=== PATIENT | male | born 1990 | race Caucasian/White ===

== ENCOUNTER 2017-11-14 12:02 | Inpatient (IN) | payer SELFPAY ==
[~2017-11-14] VITALS: Ht 177.8 cm; Wt 68.3 kg
[2017-11-14] MEDS ORDERED: ASPirin 81 mg TAB PO ONE (12:15)
[2017-11-14] MEDS ORDERED: CARISOPRODOL 350 MG TAB PO ONE (12:30)
[2017-11-14 13:47] LABS: Basophils # (auto) 0 uL; Basophils % (auto) 0.4 % (0.0-2.0); Eosinophils # (auto) 0 uL; Eosinophils % (auto) 0.4 % (0.0-7.0); Hematocrit 43.1 % (41.0-53.0); Hemoglobin 14.4 g/dL (13.5-17.5); Lymphocytes % (auto) 22.5 % (10.0-50.0); Mean Corpuscular Hemoglobin 30.3 pg (28.0-32.0); Mean Corpuscular Hgb Conc. 33.5 g/dL (32.0-36.0); Mean Corpuscular Volume 90.6 fL (80.0-100.0); Monocytes # (auto) 0.5 uL; Monocytes % (auto) 5.2 % (0.0-12.0); Neutrophils # (auto) 6.5 uL; Neutrophils % (auto) 71.5 % (37.0-80.0); Platelet Count (auto) 171 10^3/uL (140-450); Red Blood Cells 4.76 10^6/uL (4.5-5.90); Red Cell Distribution Width 13.2 % (11.8-14.3); White Blood Cell 9.1 10^3/uL (4.4-10.8)
[2017-11-14] MEDS ORDERED: PROMETHAZINE HCL 25 MG/ML 1ML ONE (14:01)
[2017-11-14] MEDS ORDERED: KETOROLAC TROMETH 30 MG/ML 1ML VIAL ONE (14:01)
[2017-11-14 14:03] LABS: Alanine Aminotransferase 30 U/L (16-61); Albumin 4.2 g/dL (3.4-5.0); Alkaline Phosphatase 83 U/L (45-117); Anion Gap 5 (5-15); Aspartate Aminotransferase 19 U/L (15-37); BUN/Creatinine Ratio 10.5; Bilirubin, Total 0.3 mg/dL (0.2-1.0); Blood Urea Nitrogen 9 mg/dL (7-18); Calcium 9.1 mg/dL (8.5-10.1); Carbon Dioxide 29 mmol/L (21-32); Chloride 107 mmol/L (98-107); GFR African American 138 mL/min; GFR Non-African American 114 mL/min; Glucose 104 mg/dL (74-106); Potassium 3.7 mmol/L (3.5-5.1); Sodium 141 mmol/L (136-145); Total Protein 7.5 g/dL (6.4-8.2)
[2017-11-14] MEDS ORDERED: KETOROLAC TROMETH 30 MG/ML 1ML VIAL IV ONE (14:15)
[2017-11-14] MEDS ORDERED: PROMETHAZINE HCL 25 MG/ML 1ML IV ONE (14:15)
[2017-11-14] MEDS ORDERED: DOCUSATE SOD 100 MG CAP PO PRN (16:30)
[2017-11-14] MEDS ORDERED: ACETAMINOPHEN 325 MG TAB PO PRN (16:30)
[2017-11-14] MEDS ORDERED: ONDANSETRON HCL 4 MG/2 ML VIAL IV PRN (16:30)
[2017-11-14] MEDS ORDERED: NITROGLYCERIN 0.4 MG SL TAB SL PRN (16:30)
[2017-11-14] MEDS ORDERED: MORPHINE SULF INJ 2 MG/ML SYRINGE 1ML IV PRN (16:30)
[2017-11-14] MEDS ORDERED: cefTRIAXone 1GM/10ml IVPUSH 10 ML IV ONE (16:45)
[2017-11-14] MEDS: HYDROcodone-ACET 5/325MG TAB PO PRN ×2 (18:44→22:50)
[2017-11-14 20:00] VITALS: BP 153/88
[2017-11-14] MEDS: MORPHINE SULF INJ 2 MG/ML SYRINGE 1ML IV PRN (20:03)
[2017-11-14 22:00] VITALS: BP 152/89
[2017-11-14] MEDS: ASCORBIC ACID 500 MG TAB PO SCH (22:00)
[2017-11-14] MEDS: FAMOTIDINE 20 MG TAB PO SCH (22:01)
[2017-11-14] MEDS: SODIUM CHLOR 0.9% PF (SALINE LOCK) 10ML VIAL/SYR IV SCH (22:01)
[2017-11-15] VITALS (7 sets, daily range): BP systolic 136–146; BP diastolic 81–98
[2017-11-15] MEDS: MORPHINE SULF INJ 2 MG/ML SYRINGE 1ML IV PRN ×5 (00:17→20:52)
[2017-11-15] MEDS: TEMAZEPAM 15 MG CAP PO PRN ×2 (00:18→22:27)
[2017-11-15] MEDS ORDERED: METH10TA97 PO (02:49)
[2017-11-15] MEDS: HYDROcodone-ACET 5/325MG TAB PO PRN ×2 (03:23→20:02)
[2017-11-15 05:31] LABS: Basophils # (auto) 0 uL; Basophils % (auto) 0.5 % (0.0-2.0); Eosinophils # (auto) 0.1 uL; Eosinophils % (auto) 0.9 % (0.0-7.0); Hematocrit 40.6 % (41.0-53.0); Hemoglobin 13.9 g/dL (13.5-17.5); Lymphocytes # (auto) 2.6 uL; Lymphocytes % (auto) 37.5 % (10.0-50.0); Mean Corpuscular Hemoglobin 30.8 pg (28.0-32.0); Mean Corpuscular Hgb Conc. 34.3 g/dL (32.0-36.0); Monocytes # (auto) 0.4 uL; Monocytes % (auto) 6.1 % (0.0-12.0); Neutrophils # (auto) 3.9 uL; Platelet Count (auto) 134 10^3/uL (140-450); Red Blood Cells 4.51 10^6/uL (4.5-5.90); Red Cell Distribution Width 13.2 % (11.8-14.3); White Blood Cell 7.1 10^3/uL (4.4-10.8)
[2017-11-15 05:44] LABS: Albumin 3.4 g/dL (3.4-5.0); BUN/Creatinine Ratio 10.4; Calcium 8.3 mg/dL (8.5-10.1); Potassium 3.7 mmol/L (3.5-5.1)
[2017-11-15 05:47] LABS: Bilirubin, Total 0.5 mg/dL (0.2-1.0); Total Protein 6.5 g/dL (6.4-8.2)
[2017-11-15] MEDS: SODIUM CHLOR 0.9% PF (SALINE LOCK) 10ML VIAL/SYR IV SCH ×3 (06:06→21:45)
[2017-11-15] MEDS: ZINC SULFATE 220mg CAP or TAB PO SCH (09:11)
[2017-11-15] MEDS: MULTIPLE VITAMIN TAB PO SCH (09:11)
[2017-11-15] MEDS: FAMOTIDINE 20 MG TAB PO SCH ×2 (09:11→21:44)
[2017-11-15] MEDS: METHADONE HCL 10 MG TAB PO SCH (09:12)
[2017-11-15] MEDS: cefTRIAXone 1GM/10ml IVPUSH 10 ML IV SCH (09:12)
[2017-11-15] MEDS: ASCORBIC ACID 500 MG TAB PO SCH ×2 (09:23→21:45)
[2017-11-15] MEDS ORDERED: MORPHINE SULF INJ 2 MG/ML SYRINGE 1ML ONE (17:50)
[2017-11-15] MEDS ORDERED: MORPHINE SULF INJ 2 MG/ML SYRINGE 1ML IM ONE (18:15)
[2017-11-15] MEDS ORDERED: MORPHINE SULF INJ 2 MG/ML SYRINGE 1ML IV ONE (18:30)
[2017-11-16] MEDS: HYDROcodone-ACET 5/325MG TAB PO PRN ×2 (02:27→10:49)
[2017-11-16 05:00] VITALS: BP 152/91
[2017-11-16] MEDS: SODIUM CHLOR 0.9% PF (SALINE LOCK) 10ML VIAL/SYR IV SCH ×3 (06:00→21:33)
[2017-11-16 06:08] LABS: Basophils # (auto) 0 uL; Basophils % (auto) 0.5 % (0.0-2.0); Eosinophils # (auto) 0.1 uL; Eosinophils % (auto) 1.8 % (0.0-7.0); Hematocrit 41.1 % (41.0-53.0); Hemoglobin 14.3 g/dL (13.5-17.5); Lymphocytes % (auto) 46.7 % (10.0-50.0); Mean Corpuscular Hemoglobin 31.3 pg (28.0-32.0); Mean Corpuscular Hgb Conc. 34.8 g/dL (32.0-36.0); Mean Corpuscular Volume 89.8 fL (80.0-100.0); Monocytes # (auto) 0.5 uL; Monocytes % (auto) 8.1 % (0.0-12.0); Neutrophils # (auto) 2.8 uL; Neutrophils % (auto) 42.9 % (37.0-80.0); Nucleated Red Blood Cells % 0.1 %; Platelet Count (auto) 143 10^3/uL (140-450); Red Blood Cells 4.58 10^6/uL (4.5-5.90); White Blood Cell 6.5 10^3/uL (4.4-10.8)
[2017-11-16 06:24] LABS: BUN/Creatinine Ratio 11.7; Calcium 8.8 mg/dL (8.5-10.1); Potassium 4.1 mmol/L (3.5-5.1)
[2017-11-16] MEDS: MORPHINE SULF INJ 2 MG/ML SYRINGE 1ML IV PRN (07:03)
[2017-11-16 09:00] VITALS: BP 154/83
[2017-11-16] MEDS: ASCORBIC ACID 500 MG TAB PO SCH ×3 (10:00→21:33)
[2017-11-16] MEDS: ZINC SULFATE 220mg CAP or TAB PO SCH (10:28)
[2017-11-16] MEDS: cefTRIAXone 1GM/10ml IVPUSH 10 ML IV SCH (10:29)
[2017-11-16] MEDS: METHADONE HCL 10 MG TAB PO SCH (10:29)
[2017-11-16] MEDS: MULTIPLE VITAMIN TAB PO SCH (10:29)
[2017-11-16] MEDS: FAMOTIDINE 20 MG TAB PO SCH ×2 (10:29→21:36)
[2017-11-16] MEDS: HYDROmorphone HCL 2 MG/ML VL IV PRN ×3 (11:38→20:40)
[2017-11-16 12:50] VITALS: BP 136/95
[2017-11-16 17:00] VITALS: BP 152/84
[2017-11-16] MEDS: TEMAZEPAM 15 MG CAP PO PRN (21:35)
[2017-11-16 21:48] VITALS: BP 146/85
[2017-11-17] MEDS: SODIUM CHLOR 0.9% PF (SALINE LOCK) 10ML VIAL/SYR IV SCH ×3 (05:26→22:29)
[2017-11-17] MEDS: HYDROmorphone HCL 2 MG/ML VL IV PRN ×5 (05:26→22:30)
[2017-11-17 05:41] VITALS: BP 135/87
[2017-11-17 08:00] VITALS: BP 145/98
[2017-11-17] MEDS: ZINC SULFATE 220mg CAP or TAB PO SCH (09:56)
[2017-11-17] MEDS: FAMOTIDINE 20 MG TAB PO SCH ×2 (09:56→22:29)
[2017-11-17] MEDS: cefTRIAXone 1GM/10ml IVPUSH 10 ML IV SCH (09:56)
[2017-11-17] MEDS: MULTIPLE VITAMIN TAB PO SCH (09:57)
[2017-11-17] MEDS: METHADONE HCL 10 MG TAB PO SCH (09:58)
[2017-11-17] MEDS: ASCORBIC ACID 500 MG TAB PO SCH ×2 (09:58→22:00)
[2017-11-17 12:00] VITALS: BP 121/85
[2017-11-17 17:00] VITALS: BP 146/92
[2017-11-17 22:00] VITALS: BP 162/82
[2017-11-17] MEDS: TEMAZEPAM 15 MG CAP PO PRN (22:29)
[2017-11-18] MEDS: HYDROmorphone HCL 2 MG/ML VL IV PRN ×5 (04:30→21:54)
[2017-11-18 05:30] VITALS: BP 155/77
[2017-11-18] MEDS: SODIUM CHLOR 0.9% PF (SALINE LOCK) 10ML VIAL/SYR IV SCH ×3 (06:13→21:55)
[2017-11-18] MEDS: cefTRIAXone 1GM/10ml IVPUSH 10 ML IV SCH (08:31)
[2017-11-18 09:20] VITALS: BP 145/85
[2017-11-18] MEDS: MULTIPLE VITAMIN TAB PO SCH (09:42)
[2017-11-18] MEDS: ZINC SULFATE 220mg CAP or TAB PO SCH (09:42)
[2017-11-18] MEDS: FAMOTIDINE 20 MG TAB PO SCH ×2 (09:42→21:54)
[2017-11-18] MEDS: METHADONE HCL 10 MG TAB PO SCH (09:43)
[2017-11-18] MEDS: ASCORBIC ACID 500 MG TAB PO SCH ×2 (09:45→21:58)
[2017-11-18] MEDS ORDERED: HYDROcodone-ACET 5/325MG TAB PO PRN (12:15)
[2017-11-18 12:57] VITALS: BP 120/83
[2017-11-18 17:02] VITALS: BP 151/96
[2017-11-18] MEDS ORDERED: HYDROcodone-ACET 10/325MG TAB PO ONE (19:00)
[2017-11-18] MEDS: TEMAZEPAM 15 MG CAP PO PRN (21:54)
[2017-11-18 22:00] VITALS: BP 140/84
[2017-11-19 05:00] VITALS: BP 137/77
[2017-11-19] MEDS: HYDROmorphone HCL 2 MG/ML VL IV PRN (05:54)
[2017-11-19] MEDS: SODIUM CHLOR 0.9% PF (SALINE LOCK) 10ML VIAL/SYR IV SCH (05:54)
[2017-11-19 09:00] VITALS: BP 137/74
[2017-11-19] MEDS: ZINC SULFATE 220mg CAP or TAB PO SCH (09:58)
[2017-11-19] MEDS: FAMOTIDINE 20 MG TAB PO SCH (10:00)
[2017-11-19] MEDS: MULTIPLE VITAMIN TAB PO SCH (10:00)
[2017-11-19] MEDS: ASCORBIC ACID 500 MG TAB PO SCH (10:00)
[2017-11-19] MEDS ORDERED: METHADONE HCL 10 MG TAB PO SCH (10:00)
[2017-11-19 13:47] VITALS: BP 122/81
== END 2017-11-19 14:15 | disposition home or self-care (01) | DRG 201 ==
LOC: ER 12:02 → TELE 12:03 → TELE-WESTW 19:40
PROVIDERS: ADMIT Internal Medicine; ATTEND Internal Medicine
PROC: 0W9930Z Drainage of Right Pleural Cavity with Drainage Device, Percutaneous Approach (ICD-10-PCS; principal; 2017-11-14)
DX: J93.0 Spontaneous tension pneumothorax (principal); F17.210 Nicotine dependence, cigarettes, uncomplicated; F12.90 Cannabis use, unspecified, uncomplicated; Z83.79 Family history of other diseases of the digestive system; Z82.49 Family history of ischemic heart disease and other diseases of the circulatory system; Z71.6 Tobacco abuse counseling
CPT/HCPCS: 32551; 36415; 71045; 71046; 80048; 80053; 83880; 84443; 84484; 85025; 87040; 93005; 96374; 96375; 97163; 97530; 99291; J0696; J1885; J2405